=== PATIENT | female | born 1950 | race Caucasian/White ===

== ENCOUNTER 2016-11-03 13:28 | Emergency (ER) | payer MEDICARE, MEDICAID ==
[2016-11-03 13:28] VITALS: BMI 29.2
[2016-11-03 13:36] VITALS: O2SAT 100
[2016-11-03] MEDS ORDERED: Oxycodone/Acetaminophen 5/325 mg Tab PO STA (14:05)
[2016-11-03] MEDS ORDERED: Oxycodone/Acetaminophen 5/325 mg Tab ONE (14:20)
--- NOTE | 2016-11-03 14:38 | C.PDOC ---
History Of Present Illness 66 y/o female pmhx rheumatoid arthritis, osteoarthritis presents to the ED with complaints of worsening pain to left arm and bilateral knees and feet x5 days. Pt states is compliant with lyrica and diclofenac. Pt also reports left hip pain radiating to leg today. Denies fever, chills, numbness, tingling, trauma or any other complaints. Time Seen by Provider: 11/03/16 13:45 Chief Complaint (Nursing): Pain, Chronic History Per: Patient History/Exam Limitations: no limitations Onset/Duration Of Symptoms: Days Current Symptoms Are (Timing): Worse Severity: Moderate Recent travel outside of the [place]: No Past Medical History Reviewed: Historical Data, Nursing Documentation, Vital Signs Vital Signs: Last Vital Signs Temp 98.2 F 11/03/16 15:02 Pulse 68 11/03/16 15:02 Resp 16 11/03/16 15:02 BP 149/89 11/03/16 15:02 Pulse Ox 100 11/03/16 15:02 - Medical History PMH: Anxiety, Arthritis, Asthma, Gastrointestinal Ulcer, Hypercholesterolemia ( CONTROLLED BY DIET), Rheumatoid Arthritis Surgical History: Endoscopy Family History: States: Unknown Family Hx - Social History Hx Tobacco Use: No Hx Alcohol Use: No Hx Substance Use: No - Immunization History Hx Tetanus Toxoid Vaccination: No Hx Influenza Vaccination: No Hx Pneumococcal Vaccination: Yes Review Of Systems Except As Marked, All Systems Reviewed And Found Negative. Constitutional: Negative for: Fever, Chills Musculoskeletal: Positive for: Other (left arm pain, bilateral knee and feet pain, left hip pain) Neurological: Negative for: Weakness, Numbness Physical Exam - Physical Exam Appears: Non-toxic, Other (uncomfortable) Skin: Warm, Dry, No Rash Head: Atraumatic, Normacephalic Neck: Normal, Normal ROM, Supple Cardiovascular: Rhythm Regular Respiratory: Normal Breath Sounds, No Rales, No Rhonchi, No Wheezing Gastrointestinal/Abdominal: Normal Exam, Soft, No Tenderness Back: Paraspinal Tenderness (bilateral lumbar) Extremity: Normal ROM (all joints), Other (Bilateral upper extremities atraumatic, no redness, warmth or swelling; left knee slight small prepatellar effusion) Pulses: Left Dorsalis Pedis: Normal, Right Dorsalis Pedis: Normal Neurological/Psych: Oriented x3, Normal Speech, Normal Motor, Normal Sensation ED Course And Treatment O2 Sat by Pulse Oximetry: 100 (room air) Pulse Ox Interpretation: Normal Progress Note: Plan: toradol, percocet Medical Decision Making Medical Decision Making: pt is feeling better; will d/.c with flexeril; pt to f/u with Dr Rose tomorrow and continue diclofenac. Disposition Counseled Patient/Family Regarding: Diagnosis, Need For Followup, Rx Given - Disposition Referrals: Yared Rose MD [Staff Provider] - Disposition: HOME/ ROUTINE Disposition Time: 14:50 Condition: IMPROVED Additional Instructions: Follow up with Dr Rose for evaluation of your pain and your medications. Take Flexeril to help with pain relief; will make you sleepy. Do not take second dose of Diclofenac tonight since you received a similar medicine in the ED today. Take Tylenol tonight if needed. Return to ER for any worsening symptoms. Prescriptions: Cyclobenzaprine [Flexeril] 5 mg PO TID #6 tab Instructions: Osteoarthritis (ED), Rheumatoid Arthritis (ED) Forms: Gen Discharge Inst Chadian Print Language: AMHARIC - Clinical Impression Clinical Impression: Arthritis - PA / OBSTETRICS TECH / Resident Statement / has reviewed & agrees with the documentation as recorded. - Scribe Statement The provider has reviewed the documentation as recorded by the Letty Hendricks All medical record entries made by the Dayanaibgurpreet were at my direction and personally dictated by me. I have reviewed the chart and agree that the record accurately reflects my personal performance of the history, physical exam, medical decision making, and the department course for this patient. I have also personally directed, reviewed, and agree with the discharge instructions and disposition.
[2016-11-03 15:03] VITALS: BP 149/89; PULSE 68; RESP 16; TEMP 98.2
== END 2016-11-03 15:02 | disposition home or self-care (01) ==
LOC: C.ER 13:28
DX: M13.89 Other specified arthritis, multiple sites (principal)
CPT/HCPCS: 96372; 99285; J1885

== ENCOUNTER 2016-12-15 20:01 | Emergency (ER) | payer MEDICARE, MEDICAID ==
[2016-12-15 20:02] VITALS: BMI 29.2
[2016-12-15 20:38] VITALS: RESP 16
[2016-12-15] MEDS ORDERED: Oxycodone/Acetaminophen 5/325 mg Tab PO STA (21:03)
[2016-12-15] MEDS ORDERED: Oxycodone/Acetaminophen 5/325 mg Tab ONE (21:28)
--- NOTE | 2016-12-15 22:04 | C.PDOC ---
History Of Present Illness 66 y/o female, with PMHx of Osteoarthritis and Rheumatoid Arthritis, presents to the ED for evaluation of right knee pain which began several days ago. H/o similar episodes in the past. Took Diclofenac without relief. Denies any new symptoms. Patient denies fever, chills, direct trauma/injury to affected area, or extremity numbness/weakness. Time Seen by Provider: 12/15/16 20:38 Chief Complaint (Nursing): Lower Extremity Problem/Injury History Per: Patient History/Exam Limitations: no limitations Onset/Duration Of Symptoms: Days Current Symptoms Are (Timing): Still Present Additional History Per: Prior Records (Prior records reviewed, noted to have similar visit for same symptoms. ) - Knee Description Of Injury: denies: Fell, Struck With Object, Struck Against Object, Twisted Past Medical History Reviewed: Historical Data, Nursing Documentation, Vital Signs Vital Signs: Last Vital Signs Temp 97.8 F 12/15/16 22:42 Pulse 66 12/15/16 22:42 Resp 16 12/15/16 22:42 BP 112/72 12/15/16 22:42 Pulse Ox 99 12/15/16 22:53 - Medical History PMH: Anxiety, Arthritis, Asthma, Gastrointestinal Ulcer, Hypercholesterolemia ( CONTROLLED BY DIET), Rheumatoid Arthritis Surgical History: Endoscopy Family History: States: Unknown Family Hx - Social History Hx Tobacco Use: No Hx Alcohol Use: No Hx Substance Use: No - Immunization History Hx Tetanus Toxoid Vaccination: No Hx Influenza Vaccination: No Hx Pneumococcal Vaccination: Yes Review Of Systems Constitutional: Negative for: Fever, Chills Musculoskeletal: Positive for: Other (+right knee pain ) Neurological: Negative for: Weakness, Numbness Physical Exam - Physical Exam Appears: Non-toxic, In Acute Distress (in painful distress) Skin: Normal Color, Warm, Dry Head: Atraumatic, Normacephalic Eye(s): bilateral: Normal Inspection, EOMI Oral Mucosa: Moist Neck: Normal ROM, Supple Chest: Symmetrical Respiratory: No Accessory Muscle Use Extremity: Normal ROM, Tenderness (diffuse to right knee ), No Calf Tenderness, Capillary Refill (less than 2 seconds ), No Deformity, Swelling (mild, right knee ), Other (+mild effusion to right knee. no erythema, no increased warmth ) Extremity: Bilateral: Atraumatic, Normal Color And Temperature, Normal ROM Pulses: Left Dorsalis Pedis: Normal, Right Dorsalis Pedis: Normal Neurological/Psych: Normal Speech, Normal Cognition, Normal Motor, Normal Sensation Gait: Steady ED Course And Treatment O2 Sat by Pulse Oximetry: 99 (on RA) Pulse Ox Interpretation: Normal Progress Note: Patient received Toradol IM and Percocet PO. On reassessment, patient is resting comfortably, showing no signs of distress, and reports an improvement in her pain. Patient is ambulatory in the ED and is stable for discharge. Patient is advised to follow up with Dr. Rose within 1-2 days for further evaluation. Reassessment Condition: Improved Disposition - Disposition Disposition: HOME/ ROUTINE Disposition Time: 22:02 Condition: STABLE Additional Instructions: Follow up with Dr Rose in 1-2 days . Return to ER if symptoms persist or worsen. Prescriptions: traMADol [Ultram] 50 mg PO Q8 #20 tab Instructions: Osteoarthritis (ED) Print Language: INDONESIAN - Clinical Impression Clinical Impression: Knee pain, Arthritis - PA / LINK FABRIC MACHINE OPERATOR / Resident Statement MD/DO has reviewed & agrees with the documentation as recorded. - Scribe Statement The provider has reviewed the documentation as recorded by the Scribe (Ivanna Stovall)
[2016-12-15 22:44] VITALS: BP 112/72; PULSE 66; TEMP 97.8
[2016-12-15 22:48] VITALS: O2SAT 99
== END 2016-12-15 22:42 | disposition home or self-care (01) ==
LOC: C.ER 20:01
DX: M17.11 Unilateral primary osteoarthritis, right knee (principal); M25.561 Pain in right knee
CPT/HCPCS: 96372; 99283; J1885

== ENCOUNTER 2017-08-01 20:15 | Emergency (ER) | payer MEDICARE, MEDICAID ==
[2017-08-01 20:15] VITALS: BMI 29.2
[2017-08-01 20:39] VITALS: BP 137/78; PULSE 77; TEMP 98.4; O2SAT 99
--- NOTE | 2017-08-01 21:33 | C.PDOC ---
History Of Present Illness 66 year old female presents to the ED for evaluation of blisters to her bilateral knees (right worse than left) which occurred at around 0700 today. Patient states she applied ice packs to the area and then went to sleep and woke up with blisters to b/l knees. Patient has not done anything to relieve her symptoms. Patient denies extremity numbness/weakness. Time Seen by Provider: 08/01/17 21:07 Chief Complaint (Nursing): Abnormal Skin Integrity History Per: Patient History/Exam Limitations: no limitations Onset/Duration Of Symptoms: Hrs Current Symptoms Are (Timing): Still Present Location Of Injury: Right: Knee, Left: Knee Quality Of Symptoms: Painful Additional History Per: Patient Past Medical History Reviewed: Historical Data, Nursing Documentation, Vital Signs Vital Signs: Last Vital Signs Temp 98.4 F 08/01/17 20:32 Pulse 77 08/01/17 20:32 Resp 20 08/01/17 22:05 BP 137/78 08/01/17 20:32 Pulse Ox 99 08/01/17 22:32 - Medical History PMH: Anxiety, Arthritis, Asthma, Gastritis, Gastrointestinal Ulcer, Hypercholesterolemia (CONTROLLED BY DIET), Rheumatoid Arthritis Denies: Chronic Kidney Disease Surgical History: Endoscopy (a year ago) Family History: States: Unknown Family Hx - Social History Hx Tobacco Use: No Hx Alcohol Use: No Hx Substance Use: No - Immunization History Hx Tetanus Toxoid Vaccination: No Hx Influenza Vaccination: No Hx Pneumococcal Vaccination: Yes Review Of Systems Constitutional: Negative for: Fever Skin: Positive for: Other (blisters to b/l knees ) Neurological: Negative for: Weakness, Numbness Physical Exam - Physical Exam Appears: Non-toxic, No Acute Distress Skin: Warm, Dry, Other (large, fluid-filled blisters to right knee with erythema. one small blister to left knee. no proximal or distal streaking ) Extremity: Normal ROM (bilateral knees ), No Tenderness, Capillary Refill (less than 2 seconds ), No Deformity, No Swelling Neurological/Psych: Oriented x3, Normal Speech, Normal Cognition, Normal Sensation ED Course And Treatment O2 Sat by Pulse Oximetry: 99 (on RA) Pulse Ox Interpretation: Normal Progress Note: Motrin PO administered. Blisters were debrided in the ED, irrigated and sterile dressing was applied. On reassessment, patient is resting comfortably, showing no signs of distress and is stable for discharge.Pt educated in wound care. Patient is advised to f/u with her PMD within 1-2 days for wound check and/or return to the ED if symptoms persist or worsen. Pt understand and agreed to plan. Disposition Counseled Patient/Family Regarding: Diagnosis, Need For Followup - Disposition Referrals: Yared Rose MD [Staff Provider] - Disposition: HOME/ ROUTINE Disposition Time: 21:55 Condition: STABLE Additional Instructions: Please follow up with PMD for wound check on thursday Follow wound care instructions to clean wound Apply bacitracin oint Return to ER if redness, warmth, swelling, discharge or moderate pain or worse Prescriptions: Bacitracin Ointment [Bacitracin] 30 gm TOP BID #60 g Ibuprofen [Motrin] 600 mg PO Q6H #20 tab Instructions: Skin Ross (DC) Forms: [employer] (Monegasque) Print Language: KOSOVAN - Clinical Impression Clinical Impression: Second degree burn - PA / OPTICAL INSTRUMENT SPECIALIST / Resident Statement MD/DO has reviewed & agrees with the documentation as recorded. - Scribe Statement The provider has reviewed the documentation as recorded by the Scribe (Ivanna Stovall) All medical record entries made by the Scribe were at my direction and personally dictated by me. I have reviewed the chart and agree that the record accurately reflects my personal performance of the history, physical exam, medical decision making, and the department course for this patient. I have also personally directed, reviewed, and agree with the discharge instructions and disposition.
[2017-08-01] MEDS ORDERED: Bacitracin 500 Units/gm Oint Foilpak UD ONE (21:36)
[2017-08-01 22:06] VITALS: RESP 20
== END 2017-08-01 22:05 | disposition home or self-care (01) ==
LOC: C.ER 20:15
DX: T24.222A Burn of second degree of left knee, initial encounter (principal); T24.221A Burn of second degree of right knee, initial encounter; X08.8XXA Exposure to other specified smoke, fire and flames, initial encounter; E78.00 Pure hypercholesterolemia, unspecified; M06.9 Rheumatoid arthritis, unspecified

== ENCOUNTER 2018-02-09 18:53 | Emergency (ER) | payer MEDICARE, MEDICAID ==
[2018-02-09 18:53] VITALS: BMI 29.2
[2018-02-09 19:03] VITALS: BP 126/78; PULSE 75; RESP 18; TEMP 98.5; O2SAT 100
--- NOTE | 2018-02-09 19:31 | C.PDOC ---
History Of Present Illness 67 y/o female w/PMHx of HTN presents to the ER complaining of evaluation of left upper back pain gradually developed over the past 3 days. Pt states that the pain is localized, reproducible, and worse with movement. Otherwise, Pt denies known recent trauma, injuries, denies fever, chills, headache, dizziness , CP,SOB, palpitation, diaphoresis, cough, abd. pain, V/D, back pain, UTI sx. Pt admits, " cleaning house a lot". Ambulate to ED for evaluation, not in any apparent distress. Time Seen by Provider: 02/09/18 19:17 Chief Complaint (Nursing): Cough, Cold, Congestion History Per: Patient History/Exam Limitations: no limitations Onset/Duration Of Symptoms: Days Current Symptoms Are (Timing): Still Present Severity: Moderate Past Medical History Reviewed: Historical Data, Nursing Documentation, Vital Signs Vital Signs: Last Vital Signs Temp 98.5 F 02/09/18 19:01 Pulse 75 02/09/18 19:01 Resp 18 02/09/18 19:01 BP 126/78 02/09/18 19:01 Pulse Ox 100 02/09/18 21:09 - Medical History PMH: Anxiety, Arthritis, Asthma, Gastritis, Gastrointestinal Ulcer, Hypercholesterolemia (CONTROLLED BY DIET), Rheumatoid Arthritis Denies: Chronic Kidney Disease Surgical History: Endoscopy (a year ago) Family History: States: No Known Family Hx - Social History Hx Tobacco Use: No Hx Alcohol Use: No Hx Substance Use: No - Immunization History Hx Tetanus Toxoid Vaccination: No Hx Influenza Vaccination: No Hx Pneumococcal Vaccination: Yes Review Of Systems Except As Marked, All Systems Reviewed And Found Negative. Constitutional: Negative for: Fever, Chills Cardiovascular: Negative for: Chest Pain Respiratory: Negative for: Shortness of Breath Musculoskeletal: Positive for: Back Pain Physical Exam - Physical Exam Appears: Well, Non-toxic, Other (crying from pain) Skin: Normal Color, Warm, Dry Head: Normacephalic Nose: No Flaring Oral Mucosa: Moist, No Drooling Throat: No Drooling Neck: Trachea Midline, No Midline Cervical Tenderness, No Paracervical Tenderness, No Step Off Deformity, Supple Chest: Symmetrical Cardiovascular: Rhythm Regular, No Murmur, No JVD, Other ((-) carotid bruits B/L ) Respiratory: No Decreased Breath Sounds, No Accessory Muscle Use, No Rales, No Rhonchi, No Wheezing Gastrointestinal/Abdominal: Soft, No Tenderness Back: No CVA Tenderness, No Vertebral Tenderness, No Paraspinal Tenderness, Other (tenderness over left periscapular region with palpable muscle spasm, no skin changes) Extremity: Normal ROM, No Pedal Edema, No Swelling Neurological/Psych: Oriented x3, Normal Speech, Normal Motor, Normal Sensation, Normal Reflexes ED Course And Treatment ECG: Interpreted By Me, Viewed By Me ECG Rhythm: Sinus Rhythm ECG Interpretation: Normal Interpretation Of ECG: SR@65/min, NAD, no acute T wave or ST-T changes. O2 Sat by Pulse Oximetry: 100 (RA) Pulse Ox Interpretation: Normal - Radiology CXR: Interpreted by Me, Viewed By Me CXR Interpretation: Yes: No Acute Disease Progress Note: CXR and ECG ordered. Patient treated with Prednisone PO and Gabapentin PO. On re-eavl, pt reports moderate improvement in pain. Afebrile, hemodynamicaly stable. NOn-toxic. PulseOx 100% RA. ENT: sarai cute findings. neck: Supple, (-) JVD, (-) carotid bruits B/L. Lungs: CTA B/L, BS equal B/L. CVS: (+)S1S2, reg. Abd: benign. Neuorlogicaly intact. CXR, EKG review- sarai cute findings. Pt has clinical finidngs c/w Left upper back pain, reproducible , likely musculoskeletal. Pt advised. ref. to f/u with PMD in 2 days for re- eval. return to ED if any worsening or new changes. Disposition Counseled Patient/Family Regarding: Studies Performed, Diagnosis, Need For Followup, Rx Given - Disposition Referrals: Yared Rose MD [Staff Provider] - Disposition: HOME/ ROUTINE Disposition Time: 20:02 Condition: STABLE Additional Instructions: Light duty, avoid physical activity for 1 week, " no house cleaning" Take medication as prescribed Follow up with PMD in 2 days for re-evaluation. return to ED if any worsening or new changes Prescriptions: Gabapentin [Neurontin] 300 mg PO Q12 #10 cap Methocarbamol [Robaxin] 500 mg PO TID #14 tab Prednisone [Deltasone] 20 mg PO DAILY #3 tablet Instructions: Upper Back Pain Forms: [employer] (Syrian) Print Language: [place] CITIZEN - Clinical Impression Clinical Impression: Upper back pain - PA / HOOK AND EYE SEWING MACHINE OPERATOR / Resident Statement MD/DO has reviewed & agrees with the documentation as recorded. - Scribe Statement The provider has reviewed the documentation as recorded by the Dayanaibe Annie Herman Provider Attestation All medical record entries made by the Dayanaibgurpreet were at my direction and personally dictated by me. I have reviewed the chart and agree that the record accurately reflects my personal performance of the history, physical exam, medical decision making, and the department course for this patient. I have also personally directed, reviewed, and agree with the discharge instructions and disposition.
--- NOTE | 2018-02-10 08:22 | RAD ---
HISTORY: COMPARISON: 06/16/2016. TECHNIQUE: Chest PA and lateral FINDINGS: LINES AND TUBES: None. LUNG AND PLEURA: The lungs are well inflated and clear. No pleural effusion or pneumothorax. HEART AND MEDIASTINUM: The heart is not enlarged. The hilar and mediastinal contours are within normal limits. SKELETAL STRUCTURES: The bony structures are within normal limits for the patient's age. VISUALIZED UPPER ABDOMEN: Normal. OTHER FINDINGS: None. IMPRESSION: No active pulmonary disease.
--- NOTE | 2018-02-10 17:26 | CARD ---
APPROVED REPORT Date of service: 02/09/2018 EKG Measurement Heart [id number] <Conclusion> Normal sinus rhythm Normal ECG
== END 2018-02-09 21:49 | disposition home or self-care (01) ==
LOC: C.ER 18:53
DX: M54.6 Pain in thoracic spine (principal); E78.00 Pure hypercholesterolemia, unspecified; M06.9 Rheumatoid arthritis, unspecified; I10 Essential (primary) hypertension

== ENCOUNTER 2018-06-15 09:21 | Outpatient (CLI) | payer MEDICARE, MEDICAID | END 2018-06-15 09:22 | disposition home or self-care (01) | LOC: C.RADH 09:21 | DX: R10.9 Unspecified abdominal pain (principal) ==

== ENCOUNTER 2018-06-17 12:26 | Outpatient (CLI) | payer MEDICARE, MEDICAID | END 2018-06-17 12:27 | disposition home or self-care (01) | LOC: C.RADIC 12:26 | DX: J45.901 Unspecified asthma with (acute) exacerbation (principal); R00.2 Palpitations ==

== ENCOUNTER 2018-08-11 06:36 | Day surgery (SDC) | payer MEDICARE, MEDICAID ==
[2018-08-11] MEDS ORDERED: Lactated Ringer's 500 ML IV SCH (07:45)
[2018-08-11] MEDS ORDERED: Propofol 10 mg/ml Inj (20 ML) ONE (08:00)
[2018-08-11] MEDS ORDERED: Albuterol HFA 90 mcg/actuation (8 g) ONE (08:01)
[2018-08-11] MEDS ORDERED: Lactated Ringer's 1,000 ML IV ONE (08:03)
--- NOTE | 2018-08-11 08:04 | CP.SDSHP ---
Same Day Surgery H & P - History Proposed Procedure: EGD/Biopsy Pre-Op Diagnosis: GERD - Previous Medical/Surgical History Cardiac: Hypertension Pulmonary: Asthma Comments: osteoporosis Previous Surgical History: abdominoplasty - Allergies Allergies: Allergies No Known Allergies Allergy (Verified 08/11/18 06:54) - Current Medications Current Medications: viewed, per reconciliation - Physical Exam General Appearance: wdwn nad Vital Signs: Vital Signs 08/11/18 08/11/18 06:50 07:09 Temperature 98 F Pulse Rate 71 71 Respiratory 19 Rate Blood Pressure 143/73 O2 Sat by Pulse 97 Oximetry Mental Status: Alert & Oriented x3 Heart: WNL Lungs: WNL GI: WNL - {Optional Preform as Required} Abdomen: WNL - Impression Impression: GERD Pt. Evaluated Today:Candidate for Anesthesia & Procedure: Yes - Date & Time Date: 08/11/18 Time: 08:03 Short Stay Discharge - Short Stay Discharge Admitting Diagnosis/Reason for Visit: DYSPEPSIA Disposition: HOME/ ROUTINE
[2018-08-11 10:25] VITALS: BP 118/69; PULSE 71; RESP 19; TEMP 98; O2SAT 97
== END 2018-08-11 09:07 | disposition home or self-care (01) ==
LOC: C.ENDO 06:36
PROVIDERS: ATTEND Internal Medicine Gastroenterology
DX: K25.9 Gastric ulcer, unspecified as acute or chronic, without hemorrhage or perforation (principal); K29.50 Unspecified chronic gastritis without bleeding; K30 Functional dyspepsia
CPT/HCPCS: 43239; 88305; 88312; 88313; 88342; J2001; J2704; J3010; J7120

== ENCOUNTER 2018-10-18 11:12 | Emergency (ER) | payer MEDICARE, MEDICAID ==
[2018-10-18 11:12] VITALS: BMI 29.2
[2018-10-18 12:37] LABS: BASO # 0.1 K/uL (0.0-0.2); BASO % 0.7 % (0.0-2.0); EOS # 0.1 K/uL (0.0-0.7); EOS % 1.6 % (0.0-4.0); HEMOGLOBIN 12.9 g/dL (11.0-16.0); LYMPH # 2.5 K/uL (1.0-4.3); LYMPH % 28.8 % (20.0-40.0); MEAN CELL VOLUME 90.3 fL (81.0-99.0); MEAN CORPUSCULAR HEMOGLOBIN 30.6 pg (27.0-31.0); MEAN CORPUSCULAR HGB CONC 33.9 g/dL (33.0-37.0); MEAN PLATELET VOLUME 7.9 fL (7.2-11.7); MONO # 0.8 K/uL (0.0-0.8); NEUT # 5.3 K/uL (1.8-7.0); NEUT % 59.9 % (50.0-75.0); RBC 4.22 Mil/uL (3.80-5.20); RED CELL DISTRIBUTION WIDTH 13.7 % (11.5-14.5); WHITE BLOOD COUNT 8.8 K/uL (4.8-10.8)
--- NOTE | 2018-10-18 12:42 | C.PDOC ---
History Of Present Illness 68-year-old female presents to the ED with daughter for evaluation of diffuse abdominal pain and constipation which began around 4 days ago. Patient underwent left knee surgery 3 days ago. Patient states she feels a pressure-like sensation and like her stool is "right there," but she is unable to successfully move her bowels. Patient tried taking milk of magnesia at home without relief. She denies fever, chills, vomiting, or any complaints relating to her knee surgery at this time. Time Seen by Provider: 10/18/18 11:27 Chief Complaint (Nursing): GI Problem History Per: Patient, Family History/Exam Limitations: no limitations Onset/Duration Of Symptoms: Days (4) Current Symptoms Are (Timing): Still Present Location Of Pain/Discomfort: Diffuse Radiation Of Pain To:: None Quality Of Discomfort: "Pain" Associated Symptoms: Constipation. denies: Fever, Chills, Nausea, Vomiting Additional History Per: Patient Past Medical History Reviewed: Historical Data, Nursing Documentation, Vital Signs Vital Signs: Last Vital Signs Temp 97.5 F L 10/18/18 11:24 Pulse 67 10/18/18 11:24 Resp 20 10/18/18 11:24 BP 171/85 H 10/18/18 11:24 Pulse Ox 100 10/18/18 11:24 Primary Care Provider: Yared Rose Medical History PMH: Anxiety, Arthritis, Asthma, Gastritis, Gastrointestinal Ulcer, HTN Denies: Chronic Kidney Disease Surgical History: Endoscopy (a year ago) Family History: States: Unknown Family Hx - Social History Hx Tobacco Use: No Hx Alcohol Use: No Hx Substance Use: No - Immunization History Hx Tetanus Toxoid Vaccination: No Hx Influenza Vaccination: No Hx Pneumococcal Vaccination: Yes Review Of Systems Constitutional: Negative for: Fever, Chills Gastrointestinal: Positive for: Abdominal Pain, Constipation. Negative for: Nausea, Vomiting Physical Exam - Physical Exam Appears: Non-toxic, No Acute Distress Skin: Normal Color, Warm, Dry, No Rash Head: Atraumatic, Normacephalic Eye(s): bilateral: Normal Inspection, PERRL, EOMI Oral Mucosa: Moist Neck: Normal ROM, Supple Chest: Symmetrical, No Deformity, No Tenderness Cardiovascular: Rhythm Regular, No Murmur Respiratory: Normal Breath Sounds, No Rales, No Rhonchi, No Wheezing Gastrointestinal/Abdominal: Soft, Tenderness (diffuse ), Distention (mild ), No Guarding, No Rebound Back: Normal Inspection, No CVA Tenderness, No Paraspinal Tenderness Extremity: Normal ROM, Capillary Refill (less than 2 seconds ), No Swelling Neurological/Psych: Oriented x3, Normal Speech, Normal Cognition Gait: Steady ED Course And Treatment - Laboratory Results Result Diagrams: 10/18/18 12:31 10/18/18 12:31 O2 Sat by Pulse Oximetry: 100 (on RA) Pulse Ox Interpretation: Normal Medical Decision Making Medical Decision Making: Progress: Bloodwork and urinalysis ordered and reviewed. Fleet enema CO given. nurse straight cathed patient and > 800cc of urine was obtained. Patient had large Bowel movement after enema. On re-exam, the patient reports improvement of symptoms. Lungs are CTA, heart is RRR, abdomen is soft, non-tender and tolerating PO well. Ambulatory in the ED with steady gait. Follow up with the medical doctor within 1-2 days. Return if worsened. Disposition - Disposition Referrals: Yared Rose MD [Staff Provider] - Disposition: HOME/ ROUTINE Disposition Time: 14:33 Condition: IMPROVED Additional Instructions: Follow up with the Surgeon within 1-2 days without fail. return if worsened. Prescriptions: Docusate [Colace] 100 mg PO DAILY #30 cap Instructions: Constipation, Adult (DC) Forms: [employer] (Greenlandic) - Clinical Impression Clinical Impression: Constipation, Urinary retention - PA / SR. MANAGER CORPORATE COMMUNICATIONS / Resident Statement MD/DO has reviewed & agrees with the documentation as recorded. - Scribe Statement The provider has reviewed the documentation as recorded by the Scribe (Ivanna Stovall) All medical record entries made by the Scribe were at my direction and personally dictated by me. I have reviewed the chart and agree that the record accurately reflects my personal performance of the history, physical exam, medical decision making, and the department course for this patient. I have also personally directed, reviewed, and agree with the discharge instructions and disposition.
[2018-10-18 12:50] LABS: ALB/GLOB RATIO 1.2 (1.0-2.1); ALBUMIN 4.3 g/dL (3.5-5.0); ALT/SGPT 26 U/L (9-52); AST/SGOT 35 U/L (14-36); BLOOD UREA NITROGEN 22 mg/dL (7-17); CALCIUM 9.4 mg/dl (8.6-10.4); GFR NON-AFRICAN AMERICAN > 60
[2018-10-18 13:29] LABS: URINE BILIRUBIN NEGATIVE (NEGATIVE); URINE BLOOD NEGATIVE (NEGATIVE); URINE CLARITY Clear (Clear); URINE COLOR Straw (YELLOW); URINE GLUCOSE (UA) NORMAL (Normal); URINE LEUKOCYTE ESTERASE NEG Leu/uL (Negative); URINE PROTEIN NEGATIVE (NEGATIVE); URINE UROBILINOGEN NORMAL mg/dL (0.2-1.0)
[2018-10-18 15:01] VITALS: BP 157/80; PULSE 97; RESP 18; TEMP 98.4
[2018-10-20 03:51] VITALS: O2SAT 100
== END 2018-10-18 15:09 | disposition home or self-care (01) ==
LOC: C.ER 11:12
DX: R33.9 Retention of urine, unspecified (principal); K59.00 Constipation, unspecified; I10 Essential (primary) hypertension